=== PATIENT | female | born 1970 | race American Indian/Alaskan Native ===

== ENCOUNTER 2021-01-05 20:05 | Emergency (ER) | payer OTHER, MEDICAID ==
--- NOTE | 2021-01-05 20:19 | EDM.PDOC ---
<Ghassan Villarreal - Last Filed: 01/05/21 22:46> ED HPI GENERAL MEDICAL PROBLEM - General Chief Complaint: Lower Extremity Injury/Pain Stated Complaint: NUMBNESS IN TOES Time Seen by Provider: 01/05/21 20:09 - Related Data Allergies Allergy/AdvReac Type Severity Reaction Status Date / Time No Known Allergies Allergy Verified 01/05/21 20:17 Home Meds: Home Meds Chlorthalidone 25 mg PO DAILY 30 Days #30 tab 01/05/21 [Rx] metFORMIN [Glucophage XR] 500 mg PO WITHDINNER 30 Days #30 tab.er 01/05/21 [Rx] Course - Re-Assessments/Exams Free Text/Narrative Re-Assessment/Exam: 01/05/21 22:47 Patient was signed to me from the nurse practitioner. Patient new onset diabetic. Patient has sugar greater than 400 likely type II. She is not in DKA. Patient was well on exam. She was given subcu insulin and given a liter of fluids. Patient was discharged on Metformin by the nurse practitioner and w ill follow up with a primary care physician next week. Again patient looks well has no symptoms to his elevated sugar. Departure - Departure Time of Disposition: 22:47 Disposition: Home, Self-Care 01 Clinical Impression: Diabetes type 2, uncontrolled Qualifiers: Glycemic state: with hyperglycemia Qualified Code(s): E11.65 - Type 2 diabetes mellitus with hyperglycemia Hypertension Qualifiers: Hypertension type: primary hypertension Qualified Code(s): I10 - Essential (primary) hypertension - Discharge Information Prescriptions: Chlorthalidone 25 mg PO DAILY 30 Days #30 tab metFORMIN [Glucophage XR] 500 mg PO WITHDINNER 30 Days #30 tab.er Instructions: Type 2 Diabetes Mellitus, Diagnosis, Adult, Diabetes Mellitus and Foot Care, How to Take Your Blood Pressure, Hyperglycemia, [id number], Hypertension, Adult Referrals: PCP,None [Ordering Only Provider] - Forms: ED Department Discharge Additional Instructions: The following information is given to patients seen in the emergency department who are being discharged to home. This information is to outline your options for follow-up care. We provide all patients seen in our emergency department with a follow-up referral. The need for follow-up, as well as the timing and circumstances, are variable depending upon the specifics of your emergency department visit. If you don't have a primary care physician on staff, we will provide you with a referral. We always advise you to contact your personal physician following an emergency department visit to inform them of the circumstance of the visit and for follow-up with them and/or the need for any referrals to a consulting specialist. The emergency department will also refer you to a specialist when appropriate. This referral assures that you have the opportunity for follow-up care with a specialist. All of these measure are taken in an effort to provide you with optimal care, which includes your follow-up. Under all circumstances we always encourage you to contact your private physi jayne who remains a resource for coordinating your care. When calling for follow- up care, please make the office aware that this follow-up is from your recent emergency room visit. If for any reason you are refused follow-up, please contact the [facility] Emergency Department at and asked to speak to the emergency department charge nurse. [facility] - Primary Care [address] [place] [id number] [address] [address] Plan: 1. You were evaluated today on an emergent basis. Your complaints of second and third toe discoloration was found to be something that was able to be wiped off. Due to your complaints of over a year of toe numbness blood work was completed. You were found to have a blood glucose of 479, which was treated with IV fluids and insulin. You were given Metformin 500 mg your first dose in the ER. You need to take the Metformin in the evening time. Sometimes Metformin can cause some GI upset but give it time and your body will become used to it. Your blood pressure was also elevated while in the emergency department. You stated that you took some kind of hydrochlorothiazide in the past. I have started you on Chlorthalidone 25mg by mouth daily. You will need to follow up with your primary care for further work-up and definitive care. You need to decrease the amount of sugar intake you have. Sugar is in many forms such as bread and sug emerita soft drinks. I informed you of your elevated liver enzymes and the need to stop any alcohol intake. If you have further symptoms or unexplained symptoms please return to the emergency department. 2. You can alternate Tylenol and ibuprofen as needed for pain and fever management. 3. We encourage you to follow up with your primary care provider and/or recommended specialist in the next few days for re-evaluation and further care/management. 4. If your symptoms should worsen, new symptoms develop or any of the signs and symptoms we discussed should arise please return to the emergency room or call 911 (if needed). <Mónica Hernandez - Last Filed: 01/06/21 12:12> ED HPI GENERAL MEDICAL PROBLEM - General Source of Information: Reports: Patient History Limitations: Reports: No Limitations - History of Present Illness INITIAL COMMENTS - FREE TEXT/NARRATIVE: HISTORY AND PHYSICAL: History of present illness: Patient is a 50-year-old female who presents to the emergency department with complaints of left second and third toe discoloration along with numbness. The patient states that she noted second toe discoloration at the tip of her toe yesterday and then on the third tip of the toe today. The patient has had numbness in her feet on and off for over 1 year. She has never sought any medical treatment. The patient has not seen a physician for over 1 year. Patient is concerned about possible diabetes as she is drinking quite a bit. Patient denies any fever, chills, headache, change in vision, syncope or near syncope. Denies any chest pain, back pain, shortness of breath or cough. Denies any abdominal pain, nausea, vomiting, diarrhea, constipation or dysuria. Has not noted any blood in urine or stool. Patient has been eating and drinking appropriately. Review of systems: As per history of present illness and below otherwise all systems reviewed and negative. Past medical history: As per history of present illness and as reviewed below otherwise noncontributory. Surgical history: As per history of present illness and as reviewed below otherwise noncontributory. Social history: See social history for further information Family history: As per history of present illness and as reviewed below otherwise noncontributory. Physical exam: General: Well developed and well nourished. Alert and orientated x 3. Nontoxic in appearance and in no acute distress. Vital signs are stable and have been re viewed by me. Nursing notes were reviewed. HEENT: Atraumatic, normocephalic, pupils equal and reactive bilaterally, negative for conjunctival pallor or scleral icterus, mucous membranes moist, TMs normal bilaterally, throat clear, neck supple, nontender, trachea midline. No drooling or trismus noted. No meningeal signs. No hot potato voice noted. Lungs: Clear to auscultation bilaterally. No wheezes, rales, or rhonchi. Chest nontender. Normal work of breathing, no accessory muscles used. Heart: S1S2, regular rate and rhythm without overt murmur, gallops, or rubs. No JVD. No peripheral edema Abdomen: Soft, nondistended, nontender. Normoactive bowel sounds. Negative for masses or costovertebral tenderness. Skin: Intact, warm, dry. No lesions or rashes noted. Hematologic: No petechiae or purpra. Mucosa appropriate color and normal nail bed color and refill. Extremities: Atraumatic, moves all extremities per self without difficulty or deficits, negative for cords or calf pain. Neurovascular unremarkable. Neuro: Awake, alert, oriented. Cranial nerves II through XII unremarkable. Cerebellum unremarkable. Motor and sensory unremarkable throughout. Exam nonfocal. Psychiatric: Mood and affect are appropriate. Normal thought process. Answering questions appropriately. Notes: *This patient was seen and evaluated during the 2019 SARS-CoV-2 novel coronavirus pandemic period. Community viral transmission is ongoing at time of this encounter and the emergency department is operating under pandemic response procedures. As stated above the patient is a 50-year-old female who presents to the emergency department with complaints of left second and third toe discoloration. After examination I wash the patient's toes and the discoloration disappeared. The patient has numbness on the tips of all her toes and on the lateral side of her foot. She states this has been ongoing for 1 year. The patient was surprised that the discoloration disappeared. She thinks maybe this could have been from her nail french. I do not see any evidence of erythema or hives. We will get general labs on the patient to ensure there is no abnormalities. The patient's neurologic exam was normal. Patient is agreeable with this plan. Patient CBC is unremarkable. The patient's sodium is 127, chloride 93, glucose 479, calcium 8.0, AST 117, ALT 158, alkaline phosphatase 123. The patient states that she does drink on a daily basis. She thinks it might have been hydrochlorothiazide but is unsure. For today's purposes I will treat her glucose of 479 with 10 units of regular insulin subcu and 1 L of normal saline. The patient does not have symptoms of hyperglycemia. The patient is not DKA. I will give her Metformin 500 mg while in the ER and described it daily for 30 days to allow her time for follow-up. The patient's blood pressure in the ER is running 171/107-157/90. The patient states that she has been on a hypertensive medicine in the past. I will start the patient on chlorthalidone 25mg daily for 30 days to allow for primary care follow-up. The patient is aware and agreeable with this discharge plan. I have talked with the patient about today's findings, in addition to providing specific details for plan of care. Reassessment at the time of disposition demonstrates that the patient is in no acute distress. The patient is stable for discharge, counseling was provided and we discussed in great detail signs and symptoms that would prompt them to return to the Emergency Department. Medication, follow up and supportive care measures were reviewed and discussed. Voices understanding and is agreeable to plan of care. Denies any further questions or concerns at this time. Diagnostics: CBC and CMP Therapeutics: IV fluids, 10 units subcu regular insulin Prescription: Metformin 500 mg p.o. daily in the evening. Chlorthalidone 25mg p.o. daily Impression: Plan: 1. You were evaluated today on an emergent basis. Your complaints of second and third toe discoloration was found to be something that was able to be wiped off. Due to your complaints of over a year of toe numbness blood work was completed. You were found to have a blood glucose of 479, which was treated with IV fluids and insulin. You were given Metformin 500 mg your first dose in the ER. You need to take the Metformin in the evening time. Sometimes Metformin can cause some GI upset but give it time and your body will become used to it. Your blood pressure was also elevated while in the emergency department. You stated that you took some kind of hydrochlorothiazide in the past. I have started you on Chlorthalidone 25mg by mouth daily. You will need to follow up with your primary care for further work-up and definitive care. You need to decrease the amount of sugar intake you have. Sugar is in many forms such as bread and sugary soft drinks. I informed you of your elevated liver enzymes and the need to stop any alcohol intake. If you have further symptoms or unexplained symptoms please return to the emergency department. 2. You can alternate Tylenol and ibuprofen as needed for pain and fever management. 3. We encourage you to follow up with your primary care provider and/or recommended specialist in the next few days for re-evaluation and further care/management. 4. If your symptoms should worsen, new symptoms develop or any of the signs and symptoms we discussed should arise please return to the emergency room or call 911 (if needed). Definitive disposition and diagnosis as appropriate pending reevaluation and review of above. left foot Pain Score (Numeric/FACES): 7 Review of Systems - Review of Systems Review Of Systems: Comprehensive ROS is negative, except as noted in HPI. ED EXAM, GENERAL - Physical Exam Exam: See Below (Dictation) Course - Vital Signs Last Recorded V/S: Last Vital Signs Temp 97.1 F 01/05/21 20:13 Pulse 91 01/05/21 23:28 Resp 17 01/05/21 23:28 BP 159/92 H 01/05/21 23:28 Pulse Ox 97 01/05/21 23:28 - Orders/Labs/Meds Labs: Laboratory Tests 01/05/21 01/05/21 01/05/21 Range/Units 20:50 20:50 20:50 WBC 7.40 (4.0-11.0) K/uL RBC 5.11 (4.30-5.90) M/uL Hgb 13.8 (12.0-16.0) g/dL Hct 40.5 (36.0-46.0) % MCV 79.3 L (80.0-98.0) fL MCH 27.0 (27.0-32.0) pg MCHC 34.1 (31.0-37.0) g/dL RDW Std Deviation 40.7 (28.0-62.0) fl RDW Coeff of Lorie 14 (11.0-15.0) % Plt Count 312 (150-400) K/uL MPV 10.00 (7.40-12.00) fL Neut % (Auto) 50.1 (48.0-80.0) % Lymph % (Auto) 42.8 H (16.0-40.0) % [place] % (Auto) 4.7 (0.0-15.0) % Eos % (Auto) 1.9 (0.0-7.0) % Baso % (Auto) 0.5 (0.0-1.5) % Neut # (Auto) 3.7 (1.4-5.7) K/uL Lymph # (Auto) 3.2 H (0.6-2.4) K/uL [place] # (Auto) 0.4 (0.0-0.8) K/uL Eos # (Auto) 0.1 (0.0-0.7) K/uL Baso # (Auto) 0.0 (0.0-0.1) K/uL Nucleated RBC % 0.0 /100WBC Nucleated RBCs # 0 K/uL Sodium 127 L (136-145) mmol/L Potassium 3.7 (3.5-5.1) mmol/L Chloride 93 L (98-107) mmol/L Carbon Dioxide 23.6 (21.0-32.0) mmol/L BUN 18 (7.0-18.0) mg/dL Creatinine 0.9 (0.6-1.0) mg/dL Est Cr Clr Drug Dosing 63.86 mL/min Estimated GFR (MDRD) > 60.0 ml/min Glucose 479 H (74-106) mg/dL POC Glucose (70-99) mg/dL Hemoglobin A1c 13.3 H (4.5 - 6.2) % Calcium 8.0 L (8.5-10.1) mg/dL Total Bilirubin 0.5 (0.2-1.0) mg/dL AST 117 H (15-37) IU/L ALT 158 H (14-63) IU/L Alkaline Phosphatase 123 H (46-116) U/L Total Protein 8.6 H (6.4-8.2) g/dL Albumin 3.6 (3.4-5.0) g/dL Globulin 5.0 H (2.6-4.0) g/dL Albumin/Globulin Ratio 0.7 L (0.9-1.6) 01/05/ Range/Units 23:01 WBC (4.0-11.0) K/uL RBC (4.30-5.90) M/uL Hgb (12.0-16.0) g/dL Hct (36.0-46.0) % MCV (80.0-98.0) fL MCH (27.0-32.0) pg MCHC (31.0-37.0) g/dL RDW Std Deviation (28.0-62.0) fl RDW Coeff of Lorie (11.0-15.0) % Plt Count (150-400) K/uL MPV (7.40-12.00) fL Neut % (Auto) (48.0-80.0) % Lymph % (Auto) (16.0-40.0) % [place] % (Auto) (0.0-15.0) % Eos % (Auto) (0.0-7.0) % Baso % (Auto) (0.0-1.5) % Neut # (Auto) (1.4-5.7) K/uL Lymph # (Auto) (0.6-2.4) K/uL [place] # (Auto) (0.0-0.8) K/uL Eos # (Auto) (0.0-0.7) K/uL Baso # (Auto) (0.0-0.1) K/uL Nucleated RBC % /100WBC Nucleated RBCs # K/uL Sodium (136-145) mmol/L Potassium (3.5-5.1) mmol/L Chloride (98-107) mmol/L Carbon Dioxide (21.0-32.0) mmol/L BUN (7.0-18.0) mg/dL Creatinine (0.6-1.0) mg/dL Est Cr Clr Drug Dosing mL/min Estimated GFR (MDRD) ml/min Glucose (74-106) mg/dL POC Glucose 360 H (70-99) mg/dL Hemoglobin A1c (4.5 - 6.2) % Calcium (8.5-10.1) mg/dL Total Bilirubin (0.2-1.0) mg/dL AST (15-37) IU/L ALT (14-63) IU/L Alkaline Phosphatase (46-116) U/L Total Protein (6.4-8.2) g/dL Albumin (3.4-5.0) g/dL Globulin (2.6-4.0) g/dL Albumin/Globulin Ratio (0.9-1.6) Meds: Medications Discontinued Medications Generic Name Dose Route Start Last Admin Trade Name Freq PRN Reason Stop Dose Admin Chlorthalidone 25 mg 01/05/21 21:57 01/05/21 22:32 Chlorthalidone 25 Mg Tab PO 01/05/21 21:58 25 mg ONETIME ONE Administration Dextrose/Water 50 ml 01/05/21 21:56 50% Dextrose In Water 50 Ml Syringe IVPUSH ASDIRECTED PRN Hypoglycemia Glucagon 1 mg 01/05/21 21:56 Glucagon,Human Recombinant 1 Mg Vial IM ASDIRECTED PRN Hypoglycemia Sodium Chloride 1,000 mls @ 999 mls/hr 01/05/21 21:56 01/05/21 22:13 Normal Saline IV 01/05/21 22:56 999 mls/hr .BOLUS ONE Administration Insulin Human Regular 10 unit 01/05/21 21:56 01/05/21 22:14 Insulin Regular, Human 100 Units/Ml 10 Ml Vial SUBCUT 01/05/21 21:57 10 unit ONETIME ONE Administration Protocol Metformin HCl 500 mg 01/05/21 21:56 01/05/21 22:32 Metformin 500 Mg Tab PO 01/05/21 21:57 500 mg ONETIME ONE Administration Departure - Departure Condition: Good - Discharge Information *PRESCRIPTION DRUG MONITORING PROGRAM REVIEWED*: Not Applicable *COPY OF PRESCRIPTION DRUG MONITORING REPORT IN PATIENT ERIK: Not Applicable Sepsis Event Note (ED) - Evaluation Sepsis Screening Result: No Definite Risk
[2021-01-05 21:24] LABS: BLOOD UREA NITROGEN,BUN 18 mg/dL (7.0-18.0); CARBON DIOXIDE,CO2 23.6 mmol/L (21.0-32.0); CHLORIDE,CL 93 mmol/L (98-107); GLUCOSE RANDOM 479 mg/dL (74-106); POTASSIUM,K 3.7 mmol/L (3.5-5.1); SODIUM,NA 127 mmol/L (136-145)
[2021-01-05 21:56] LABS: HEMOGLOBIN A1C 13.3 %
[2021-01-05] MEDS ORDERED: Insulin Regular, Human 100 Units/ML 10 ML Vial SUBCUT ONE (21:56)
[2021-01-05] MEDS ORDERED: metFORMIN 500 MG Tab PO ONE (21:56)
[2021-01-05] MEDS ORDERED: Sodium Chloride 0.9% 1,000 ML IV ONE (21:56)
[2021-01-05] MEDS ORDERED: Glucagon,Human Recombinant 1 MG Vial IM PRN (21:56)
[2021-01-05] MEDS ORDERED: 50% Dextrose in Water 50 ML Syringe IVPUSH PRN (21:56)
[2021-01-05] MEDS ORDERED: Chlorthalidone 25 MG Tab PO ONE (21:57)
== END 2021-01-05 23:31 | disposition home or self-care (01) ==
LOC: MW.ED 20:05
DX: E11.65 Type 2 diabetes mellitus with hyperglycemia (principal); I10 Essential (primary) hypertension; Z79.84 Long term (current) use of oral hypoglycemic drugs
CPT/HCPCS: 36415; 80053; 82947; 83036; 85025; 99284; A9270; J7030; J1815-GY

== ENCOUNTER 2021-06-13 16:22 | Emergency (ER) | payer MEDICAID | END 2021-06-13 17:20 | LOC: MW.ED 16:22 | DX: Z02.89 Encounter for other administrative examinations (principal); I10 Essential (primary) hypertension; E11.9 Type 2 diabetes mellitus without complications; E03.9 Hypothyroidism, unspecified; Z79.899 Other long term (current) drug therapy; Z79.4 Long term (current) use of insulin | CPT/HCPCS: 99282; 99283 ==